=== PATIENT | male | born 1985 | race Asian ===

== ENCOUNTER 2024-01-17 06:17 | Inpatient (IN) | payer OTHER ==
[~2024-01-17] VITALS: Ht 160 cm; Wt 57.3 kg
[~2024-01-17 06:17] MED LIST: NOCURR
[2024-01-17 07:23] LABS: BASOPHILS % (AUTO) 0.9 % (0.0-2.0); EOSINOPHILS % (AUTO) 8.6 % (1.0-6.0); HEMATOCRIT 44.5 % (41-53); HEMOGLOBIN 15.1 g/dL (13.5-17.5); LYMPHOCYTES # (AUTO) 3.3 K/uL (1.0-4.8); LYMPHOCYTES % (AUTO) 36.8 % (22.0-44.0); MEAN CORPUSCULAR HEMOGLOBIN 31.2 pg (26.0-34.0); MEAN CORPUSCULAR VOLUME 92 fL (80-100); MONOCYTES # (AUTO) 0.7 K/uL (0.1-1.0); MONOCYTES % (AUTO) 7.6 % (2.0-9.0); NEUTROPHILS # (AUTO) 4.1 K/uL (1.8-7.7); NEUTROPHILS % (AUTO) 46.1 % (40.0-70.0); PLATELET COUNT (AUTO) 201 K/uL (150-450); RED BLOOD CELL COUNT(AUTO) 4.85 MIL/uL (4.50-5.90); RED CELL DISTRIBUTION WIDTH 12.6 % (11.5-14.5); WHITE BLOOD COUNT (AUTO) 8.9 K/uL (4.5-11.0)
[2024-01-17 07:32] LABS: ANION GAP 10 mmol/L (8-16); CALCIUM, TOTAL 8.4 mg/dL (8.8-10.5); CARBON DIOXIDE 24 mmol/L (22-29); CHLORIDE 104 mmol/L (98-107); CREATININE 0.86 mg/dL (0.60-1.30); GLOMERULAR FILTR. RATE CALC > 60 mL/min (>60); GLUCOSE,RANDOM 103 mg/dL (70-110); SODIUM SERUM 138 mmol/L (136-145); UREA NITROGEN, BLOOD 19 mg/dL (7-18)
[2024-01-17 07:38] LABS: ALANINE AMINOTRANSFERASE 25 U/L (12-78); ALBUMIN 3.5 g/dL (3.4-5.0); ALKALINE PHOSPHATASE 88 U/L (46-116); ASPARTATE AMINOTRANSFERASE 22 U/L (15-37); BILIRUBIN,TOTAL 0.3 mg/dL (0.1-1.0); TOTAL PROTEIN, SERUM 6.8 g/dL (6.4-8.2)
[2024-01-17 07:49] LABS: ALCOHOL, BLOOD (SERUM) < 3 mg/dL (0-10)
[2024-01-17 08:03] LABS: SALICYLATE 0.5 mg/dL (2.8-20.0)
[2024-01-17 08:26] LABS: ACETAMINOPHEN < 2 mcg/mL (10-30)
[2024-01-17] MEDS: PERTUSS(ACELL),DIPH,TET/PF 0.5 ML SYRINGE [ADULT] IM. ONE (09:17)
[2024-01-17] MEDS ORDERED: HALOPERIDOL 5 MG TABLET PO PRN (09:30)
[2024-01-17 09:42] LABS: COVID AG,FIA SOURCE NASAL SWAB
[2024-01-17 10:06] LABS: SARS-COV2 (COVID) ANTIGEN,FIA Negative (Negative)
[2024-01-17 22:19] LABS: APPEARANCE,URINE CLEAR (CLEAR); BILIRUBIN,URINE NEGATIVE (NEGATIVE); COLOR,URINE LIGHT YELLOW (YELLOW); GLUCOSE, URINE (UA) NEGATIVE (NEGATIVE); KETONES,URINE NEGATIVE (NEGATIVE); LEUKOCYTE ESTERASE ,URINE NEGATIVE (NEGATIVE); NITRATE,URINE NEGATIVE (NEGATIVE); OCCULT BLOOD,URINE NEGATIVE (NEGATIVE); PH,URINE 6.5 (5.0-8.0); PROTEIN,URINE NEGATIVE (NEGATIVE)
[2024-01-17 22:21] LABS: PH,URINE DRUG SCREEN 6.5 (5.0-8.0)
[2024-01-17 22:26] LABS: ALCOHOL, URINE DRUG SCREEN NEGATIVE (NEGATIVE); AMPHET/METH SCREEN,URINE NEGATIVE (NEGATIVE); BARBITURATE SCREEN, URINE NEGATIVE (NEGATIVE); BENZODIAZEPINES SCREEN,URINE POSITIVE (NEGATIVE); CANNABINOID SCREEN,URINE POSITIVE (NEGATIVE); COCAINE SCREEN,URINE NEGATIVE (NEGATIVE); METHADONE SCREEN, URINE NEGATIVE (NEGATIVE); OPIATE SCREEN,URINE NEGATIVE (NEGATIVE); PHENCYCLIDINE SCREEN,URINE NEGATIVE (NEGATIVE)
[2024-01-17] MEDS: BACITRACIN 28 GM OINTMENT TP ONE (22:55)
[2024-01-18] MEDS: LORazepam 2 MG TABLET PO PRN (02:51)
[2024-01-18] MEDS: ZOLPIDEM TARTRATE 10 MG TABLET PO PRN (02:51)
[2024-01-18 07:00] LABS: CHOL/HDL RATIO 4.4 (4.2-7.3)
[2024-01-18 07:03] LABS: HEMOGLOBIN A1C 5.7 % (3.8-5.6)
[2024-01-18 07:45] VITALS: O2SAT 99
[2024-01-18 09:48] VITALS: BP 137/95; PULSE 89; RESP 17; TEMP 96.2; O2SAT 99
[2024-01-18] MEDS ORDERED: GuaiFENesin/D-METHORPHAN [SUGAR-FREE] 200-20MG/10 ML SYRUP UDCUP PO PRN (15:15)
[2024-01-18] MEDS ORDERED: IBUPROFEN 400 MG TABLET PO PRN (15:15)
[2024-01-18] MEDS ORDERED: DOCUSATE SODIUM 100 MG CAPSULE PO PRN (15:15)
[2024-01-18] MEDS ORDERED: LOPERAMIDE HCL 2 MG CAPSULE PO PRN (15:15)
[2024-01-18] MEDS ORDERED: ALBUTEROL SULFATE HFA 90 MCG/PUFF 8 GM INHALER IH PRN (15:15)
[2024-01-18] MEDS ORDERED: CloNIDine HCL 0.1 MG TABLET PO PRN (15:15)
[2024-01-18] MEDS ORDERED: PETROLATUM,WHITE 28 GM JELLY TP PRN (15:15)
[2024-01-18] MEDS ORDERED: ONDANSETRON 4 MG TABLET PO PRN (15:15)
[2024-01-18] MEDS ORDERED: NICOTINE 14 MG/24 HOUR PATCH TD PRN (15:15)
[2024-01-18] MEDS ORDERED: MAG HYDROX/ALUMINUM HYD/SIMETH ES 30 ML SUSPENSION UDCUP PO PRN (15:15)
[2024-01-18] MEDS ORDERED: ACETAMINOPHEN 325 MG TABLET PO PRN (15:15)
[2024-01-18] MEDS ORDERED: MAGNESIUM HYDROXIDE SUSPENSION 30 ML UDCUP PO PRN (15:15)
[2024-01-18] MEDS: BACITRACIN 28 GM OINTMENT TP SCH (15:35)
[2024-01-18 20:49] VITALS: BP 129/70; PULSE 95; RESP 18; TEMP 97.6
[2024-01-19] VITALS (7 sets, daily range): BP systolic 126–149; BP diastolic 84–100; PULSE 69–100; RESP 17–19; TEMP 97.7–98.2; O2SAT 96–100
[2024-01-19 08:57] LABS: HEMOGLOBIN A1C 5.6 % (3.8-5.6)
[2024-01-19 09:09] LABS: CHOL/HDL RATIO 4.2 (4.2-7.3); THYROID STIMULATING HORMONE 1.16 uIU/mL (0.36-3.74)
[2024-01-19] MEDS: ChlordiazePOXIDE HCL 25 MG CAPSULE PO SCH (14:04)
[2024-01-19] MEDS: SERTRALINE HCL 50 MG TABLET PO SCH (14:04)
[2024-01-20 01:15] VITALS: RESP 18
[2024-01-20] MEDS: ChlordiazePOXIDE HCL 25 MG CAPSULE PO PRN (02:48)
[2024-01-20 05:21] VITALS: BP 132/81; PULSE 80; RESP 17; TEMP 98; O2SAT 100
[2024-01-20 10:44] VITALS: BP 147/80; PULSE 86; RESP 17; TEMP 97.2; O2SAT 97
[2024-01-20 10:46] VITALS: BP 147/80; PULSE 86; RESP 17; TEMP 97.2; O2SAT 97
[2024-01-20] MEDS ORDERED: SERT-439 PO (15:26)
[2024-01-21] MEDS ORDERED: ChlordiazePOXIDE HCL 10 MG CAPSULE PO PRN (07:00)
[2024-01-21] MEDS ORDERED: ChlordiazePOXIDE HCL 10 MG CAPSULE PO SCH (09:00)
[2024-01-22] MEDS ORDERED: ChlordiazePOXIDE HCL 10 MG CAPSULE PO PRN (07:00)
== END 2024-01-20 18:30 | disposition home or self-care (01) | DRG 881 ==
LOC: EMS 06:19 → 3EI 01-18 09:26
PROVIDERS: ADMIT Psychiatry & Neurology Child & Adolescent Psychiatry; ATTEND Psychiatry & Neurology Child & Adolescent Psychiatry
DX: F32.A Depression, unspecified (principal); R45.851 Suicidal ideations; E78.5 Hyperlipidemia, unspecified; E83.51 Hypocalcemia; Z20.822 Contact with and (suspected) exposure to COVID-19; F17.200 Nicotine dependence, unspecified, uncomplicated; F41.9 Anxiety disorder, unspecified; I10 Essential (primary) hypertension
CPT/HCPCS: 80048; 80061; 80076; 80307; 81003; 83036; 84443; 85025; 90715; 99285; G0480; G0481

== ENCOUNTER 2024-02-24 08:40 | Emergency (ER) | payer MEDICAID, OTHER ==
[~2024-02-24] VITALS: Ht 160 cm; Wt 61.4 kg
[~2024-02-24 08:40] MED LIST changes: -NOCURR; +SERT-439 PO
[2024-02-24 09:51] LABS: COVID AG,FIA SOURCE NPH
[2024-02-24 10:05] LABS: BASOPHILS % (AUTO) 0.5 % (0.0-2.0); EOSINOPHILS % (AUTO) 1.2 % (1.0-6.0); HEMATOCRIT 50.6 % (41-53); LYMPHOCYTES # (AUTO) 1.9 K/uL (1.0-4.8); LYMPHOCYTES % (AUTO) 14.8 % (22.0-44.0); MEAN CORPUSCULAR HEMOGLOBIN 30.9 pg (26.0-34.0); MEAN CORPUSCULAR HGB CONC 33.6 G/dL (31.0-37.0); MEAN CORPUSCULAR VOLUME 92 fL (80-100); MONOCYTES # (AUTO) 0.7 K/uL (0.1-1.0); MONOCYTES % (AUTO) 5.6 % (2.0-9.0); NEUTROPHILS # (AUTO) 10.1 K/uL (1.8-7.7); NEUTROPHILS % (AUTO) 77.9 % (40.0-70.0); PLATELET COUNT (AUTO) 250 K/uL (150-450); RED BLOOD CELL COUNT(AUTO) 5.51 MIL/uL (4.50-5.90); RED CELL DISTRIBUTION WIDTH 13.1 % (11.5-14.5)
[2024-02-24 10:09] LABS: CARBON DIOXIDE 28 mmol/L (22-29); CHLORIDE 102 mmol/L (98-107); POTASSIUM 3.6 mmol/L (3.5-5.1); SODIUM SERUM 138 mmol/L (136-145)
[2024-02-24 10:10] LABS: ANION GAP 8 mmol/L (8-16); CALCIUM, TOTAL 9.3 mg/dL (8.8-10.5); CREATININE 0.99 mg/dL (0.60-1.30); GLOMERULAR FILTR. RATE CALC > 60 mL/min (>60); GLUCOSE,RANDOM 150 mg/dL (70-110); UREA NITROGEN, BLOOD 10 mg/dL (7-18)
[2024-02-24 10:22] LABS: SARS-COV2 (COVID) ANTIGEN,FIA Negative (Negative)
[2024-02-24 10:50] LABS: APPEARANCE,URINE CLEAR (CLEAR); BILIRUBIN,URINE NEGATIVE (NEGATIVE); COLOR,URINE YELLOW (YELLOW); GLUCOSE, URINE (UA) NEGATIVE (NEGATIVE); KETONES,URINE NEGATIVE (NEGATIVE); LEUKOCYTE ESTERASE ,URINE NEGATIVE (NEGATIVE); NITRATE,URINE NEGATIVE (NEGATIVE); OCCULT BLOOD,URINE NEGATIVE (NEGATIVE); PROTEIN,URINE 30-70 mg/dL (NEGATIVE)
[2024-02-24 11:03] LABS: ALCOHOL, URINE DRUG SCREEN NEGATIVE (NEGATIVE); AMPHET/METH SCREEN,URINE NEGATIVE (NEGATIVE); BARBITURATE SCREEN, URINE NEGATIVE (NEGATIVE); BENZODIAZEPINES SCREEN,URINE POSITIVE (NEGATIVE); CANNABINOID SCREEN,URINE POSITIVE (NEGATIVE); COCAINE SCREEN,URINE POSITIVE (NEGATIVE); METHADONE SCREEN, URINE NEGATIVE (NEGATIVE); OPIATE SCREEN,URINE NEGATIVE (NEGATIVE); PHENCYCLIDINE SCREEN,URINE NEGATIVE (NEGATIVE)
[2024-02-24 11:53] LABS: ALCOHOL, BLOOD (SERUM) < 3 mg/dL (0-10)
[2024-02-24 13:28] VITALS: BP 139/77; PULSE 81; RESP 22; TEMP 97.6; O2SAT 100
== END 2024-02-24 14:08 | disposition home or self-care (01) ==
LOC: EMS 08:40
DX: F19.10 Other psychoactive substance abuse, uncomplicated (principal); F41.9 Anxiety disorder, unspecified; F32.A Depression, unspecified; R44.0 Auditory hallucinations; Z91.52 Personal history of nonsuicidal self-harm; Z98.890 Other specified postprocedural states; Z20.822 Contact with and (suspected) exposure to COVID-19
CPT/HCPCS: 99283; 87426; 80048; 81003; 85025; 36415; 80307; G0480

== ENCOUNTER 2024-06-30 06:35 | Inpatient (IN) | payer OTHER, MEDICAID ==
[~2024-06-30] VITALS: Ht 162.6 cm; Wt 61.0 kg
[2024-06-30 07:55] LABS: BASOPHILS % (AUTO) 0.6 % (0.0-2.0); EOSINOPHILS % (AUTO) 1.4 % (1.0-6.0); HEMATOCRIT 44.5 % (41-53); LYMPHOCYTES # (AUTO) 3.4 K/uL (1.0-4.8); LYMPHOCYTES % (AUTO) 22.2 % (22.0-44.0); MEAN CORPUSCULAR HEMOGLOBIN 30.7 pg (26.0-34.0); MEAN CORPUSCULAR HGB CONC 33.7 G/dL (31.0-37.0); MEAN CORPUSCULAR VOLUME 91 fL (80-100); MONOCYTES # (AUTO) 1.2 K/uL (0.1-1.0); MONOCYTES % (AUTO) 7.6 % (2.0-9.0); NEUTROPHILS # (AUTO) 10.5 K/uL (1.8-7.7); NEUTROPHILS % (AUTO) 68.2 % (40.0-70.0); PLATELET COUNT (AUTO) 249 K/uL (150-450); RED BLOOD CELL COUNT(AUTO) 4.89 MIL/uL (4.50-5.90); RED CELL DISTRIBUTION WIDTH 12.9 % (11.5-14.5); WHITE BLOOD COUNT (AUTO) 15.4 K/uL (4.5-11.0)
[2024-06-30 08:07] LABS: ANION GAP 7 mmol/L (8-16); CALCIUM, TOTAL 9.1 mg/dL (8.8-10.5); CARBON DIOXIDE 28 mmol/L (22-29); CHLORIDE 106 mmol/L (98-107); CREATININE 0.85 mg/dL (0.60-1.30); GLOMERULAR FILTR. RATE CALC > 60 mL/min (>60); GLUCOSE,RANDOM 121 mg/dL (70-110); POTASSIUM 3.7 mmol/L (3.5-5.1); SODIUM SERUM 141 mmol/L (136-145); UREA NITROGEN, BLOOD 7 mg/dL (7-18)
[2024-06-30 08:21] LABS: ALCOHOL, BLOOD (SERUM) < 3 mg/dL (0-10)
[2024-06-30 08:35] LABS: APPEARANCE,URINE CLEAR (CLEAR); BILIRUBIN,URINE NEGATIVE (NEGATIVE); COLOR,URINE COLORLESS (YELLOW); GLUCOSE, URINE (UA) NEGATIVE (NEGATIVE); KETONES,URINE NEGATIVE (NEGATIVE); LEUKOCYTE ESTERASE ,URINE NEGATIVE (NEGATIVE); NITRATE,URINE NEGATIVE (NEGATIVE); OCCULT BLOOD,URINE NEGATIVE (NEGATIVE); PROTEIN,URINE NEGATIVE (NEGATIVE); SPECIFIC GRAVITIY, URINE 1.009 (1.003-1.030); UROBILINOGEN,URINE <=1.0 mg/dL (<=1.0)
[2024-06-30 08:42] LABS: AMPHET/METH SCREEN,URINE NEGATIVE (NEGATIVE); BARBITURATE SCREEN, URINE NEGATIVE (NEGATIVE); BENZODIAZEPINES SCREEN,URINE POSITIVE (NEGATIVE); CANNABINOID SCREEN,URINE POSITIVE (NEGATIVE); COCAINE SCREEN,URINE NEGATIVE (NEGATIVE); METHADONE SCREEN, URINE NEGATIVE (NEGATIVE); OPIATE SCREEN,URINE NEGATIVE (NEGATIVE); PHENCYCLIDINE SCREEN,URINE NEGATIVE (NEGATIVE)
[2024-06-30 08:45] LABS: ALCOHOL, URINE DRUG SCREEN NEGATIVE (NEGATIVE)
[2024-06-30] MEDS ORDERED: HALOPERIDOL 5 MG TABLET PO PRN (10:45)
[2024-06-30 10:50] LABS: COVID AG,FIA SOURCE NPH
[2024-06-30] MEDS: LORazepam 2 MG TABLET PO PRN (11:08)
[2024-06-30 11:10] LABS: SARS-COV2 (COVID) ANTIGEN,FIA Negative (Negative)
[2024-06-30 17:14] VITALS: BP 145/89; PULSE 96; RESP 19; TEMP 98.2; O2SAT 98
[2024-06-30 20:27] VITALS: BP 140/88; PULSE 100; RESP 16; TEMP 99; O2SAT 97
[2024-06-30] MEDS: ZOLPIDEM TARTRATE 10 MG TABLET PO PRN (21:38)
[2024-07-01 08:42] VITALS: BP 138/89; PULSE 95; RESP 18; TEMP 97.8; O2SAT 96
[2024-07-01] MEDS ORDERED: SERTRALINE HCL 50 MG TABLET PO SCH (15:00)
[2024-07-01] MEDS: SERTRALINE HCL 50 MG TABLET PO SCH (15:27)
[2024-07-01 20:47] VITALS: BP 132/87; PULSE 99; RESP 17; TEMP 99.7; O2SAT 98
[2024-07-02 09:21] VITALS: BP 134/86; PULSE 93; RESP 17; TEMP 96.5; O2SAT 96
[2024-07-02 20:50] VITALS: BP 132/93; PULSE 88; RESP 17; TEMP 97; O2SAT 97
[2024-07-03 08:38] VITALS: BP 126/73; PULSE 98; RESP 16; TEMP 98.4; O2SAT 97
[2024-07-03] MEDS ORDERED: SERT-439 PO (11:15)
== END 2024-07-03 15:23 | disposition home or self-care (01) | DRG 885 ==
LOC: EMS 06:40 → B2S 14:49
PROVIDERS: ADMIT Psychiatry & Neurology Child & Adolescent Psychiatry; ATTEND Psychiatry & Neurology Child & Adolescent Psychiatry
PROC: GZ56ZZZ Individual Psychotherapy, Supportive (ICD-10-PCS; principal; 2024-07-01)
DX: F33.2 Major depressive disorder, recurrent severe without psychotic features (principal); F41.9 Anxiety disorder, unspecified; I10 Essential (primary) hypertension; Z56.0 Unemployment, unspecified; Z20.822 Contact with and (suspected) exposure to COVID-19; Z91.51 Personal history of suicidal behavior
CPT/HCPCS: 80048; 80307; 81003; 85025; 99285; G0480